=== PATIENT | male | born 1965 | race Asian ===

== ENCOUNTER 2020-04-04 06:12 | Day surgery (SDC) | payer OTHER ==
[~2020-04-04] VITALS: Ht 175.3 cm; Wt 59.1 kg
[~2020-04-04 06:12] MED LIST: ATOR40TA71 PO; BUDE0.5A3 NEB; CITA10TA99 PO; FAMO20 PO; FERRHI IV; FERSL PO; GABA-1181 PO; INSLAN SQ; INSU100V SQ; LACT100C2 PO; LANS30CA56 PO; LEVO750T68 PO; LISI-662 PO
[2020-04-04] MEDS ORDERED: SODIUM CHLORIDE 0.9% 1,000 ML ONE (06:18)
[2020-04-04] MEDS ORDERED: SODIUM CHLORIDE 0.9% 1,000 ML IV ONE (07:00)
[2020-04-04 07:24] LABS: GLUCOMETER DEV NAME(LOC) SDS.; GLUCOSE,POINT OF CARE 92 MG/DL (70-110)
[2020-04-04] MEDS ORDERED: MIDAZOLAM HCL 2 MG/2 ML VIAL ONE (07:29)
[2020-04-04] MEDS ORDERED: FentaNYL CITRATE PF 100 MCG/2 ML VIAL ONE (07:30)
[2020-04-04] MEDS ORDERED: MethylPREDNISolone SOD SUCC 125 MG/2 ML VIAL IVP ONE (09:00)
[2020-04-04] MEDS ORDERED: MethylPREDNISolone SOD SUCC 125 MG/2 ML VIAL ONE (09:40)
[2020-04-04] MEDS ORDERED: OXYGEN THERAPY IH SCH (20:00)
== END 2020-04-04 10:40 | disposition home or self-care (01) ==
LOC: SURGERY 06:12 → EDSEX 09:30 → SURGERY 10:40
PROVIDERS: ATTEND Internal Medicine Critical Care Medicine
DX: J38.4 Edema of larynx (principal); B37.0 Candidal stomatitis; F41.9 Anxiety disorder, unspecified; F32.9 Major depressive disorder, single episode, unspecified; N18.9 Chronic kidney disease, unspecified; E78.5 Hyperlipidemia, unspecified; K21.9 Gastro-esophageal reflux disease without esophagitis; Z86.718 Personal history of other venous thrombosis and embolism; Z98.890 Other specified postprocedural states
CPT/HCPCS: 31623; 31624; 71045; 82962; 87015; 87070; 87077; 87101; 87186; 87206; 87220; 88108; 88312; 93005; J2250; J2930; J3010; J7030